=== PATIENT | male | born 1970 | race Caucasian/White ===

== ENCOUNTER 2018-12-04 06:45 | Day surgery (SDC) | payer BC ==
[~2018-12-04 06:45] MED LIST: Lactated Ringers 1,000 ML IV SCH; Sodium Chloride 0.9% 10 ML Syringe FLUSH PRN
[2018-12-04] MEDS ORDERED: Propofol 200 MG/20 ML SDV IV ONE (06:46)
[2018-12-04] MEDS ORDERED: Lidocaine 1% 30 ML SDV INJECT ONE (06:46)
--- NOTE | 2018-12-04 07:52 | PREOP ---
ADMISSION DATE: 12/04/2018 CHIEF COMPLAINT: Need for colon cancer screening. HISTORY OF PRESENT ILLNESS: A 48-year-old white male presents for his 1st colonoscopy. No complaints. Has a negative family history. SOCIAL HISTORY: The patient is , with two children. ALLERGIES: He has no known drug allergies. PAST MEDICAL HISTORY: Negative. PAST SURGICAL HISTORY: Negative. FAMILY HISTORY: Significant for hepatic cancer, hypertension, and hypercholesterolemia. REVIEW OF SYSTEMS: Constitutional, HEENT, eyes, ears, nose, throat, respiratory, cardiovascular, general, urinary, and gastrointestinal are all negative. PHYSICAL EXAMINATION: GENERAL: This is a well-developed and well-nourished white male, appearing in no acute distress. VITAL SIGNS: Reviewed. He is stable, afebrile. HEENT: Grossly within normal limits. LUNGS: Clear to auscultation. HEART: Regular rate and rhythm. ABDOMEN: Soft and nontender. ASSESSMENT: Colon cancer screening. PLAN: Colonoscopy. Procedure and risks explained to the patient to include bleeding, perforation, and infection. The patient expresses understanding, and he asked us to proceed. /[id number] /MODL
--- NOTE | 2018-12-04 08:23 | PCM.OPNOTE ---
- General Post-Op/Procedure Note Date of Surgery/Procedure: 12/04/18 Operative Procedure(s): c scope Findings: normal exam Pre Op Diagnosis: screening for colon cancer Post-Op Diagnosis: Same Anesthesia Technique: MAC Primary Surgeon: Sandor Valdez Anesthesia Provider: Chepe Barr Pathology: none Complications: None Condition: Good Free Text/Narrative:: see dictation
--- NOTE | 2018-12-04 10:48 | OR ---
DATE OF OPERATION: 12/04/2018 SURGEON: Sandor Valdez MD PROCEDURE PERFORMED: Colonoscopy. PREOPERATIVE DIAGNOSIS: Colon cancer screening. POSTOPERATIVE DIAGNOSIS: Normal exam. INDICATIONS FOR PROCEDURE: This is a 48-year-old white male who presents for his initial screening colonoscopy. DESCRIPTION OF OPERATION: After an excellent IV sedation was administered, digital rectal exam was performed. No marked abnormality was noted. Flexible colonoscope was inserted and advanced to the cecum. The prep was excellent. The following findings were noted. Ascending colon, unremarkable. Transverse colon, unremarkable. Descending colon, unremarkable. Sigmoid and rectum, unremarkable. Colon was deflated, the scope was removed. The patient tolerated the procedure well. RECOMMENDATIONS: Repeat colonoscopy in 10 years. /[id number] /CASTROL
== END 2018-12-04 09:29 | disposition home or self-care (01) ==
LOC: FB.SDS 06:45
PROVIDERS: ATTEND Surgery
DX: Z12.11 Encounter for screening for malignant neoplasm of colon (principal)
CPT/HCPCS: 45378; J2001; J2704; J7120

== ENCOUNTER 2020-10-11 20:25 | Emergency (ER) | payer BC, OTHER ==
[2020-10-11] MEDS: Diphtheria,Pertussis(Acell),Tetanus Vaccine 0.5 ML Syringe IM ONE (20:50)
--- NOTE | 2020-10-11 20:51 | EDM.PDOC ---
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 an EMS call, slipped on ice striking the back of his head on the ground, no LOC, mild KAUR and mild neck pain, has had bleeding at home lives with last Td unknown - Related Data Allergies Allergy/AdvReac Type Severity Reaction Status Date / Time No Known Allergies Allergy Verified 12/04/18 07:03 Home Meds: Home Meds PEG 3350/Na Sulf,Bicarb,Cl/KCl [Peg 3350 Electrolyte] 12/04/18 [History] Past Medical History HEENT History: Reports: None Cardiovascular History: Reports: High Cholesterol Respiratory History: Reports: None Gastrointestinal History: Reports: None Genitourinary History: Reports: None GENETIC ENGINEER History: Musculoskeletal History: Reports: None Neurological History: Reports: None Psychiatric History: Reports: None Endocrine/Metabolic History: Reports: None Hematologic History: Reports: None Immunologic History: Reports: None Oncologic (Cancer) History: Reports: None Dermatologic History: Reports: None - Past Surgical History Female Surgical History: Social & Family History - Caffeine Use Caffeine Use: Reports: Coffee ED ROS GENERAL - Review of Systems Review Of Systems: See Below Constitutional: Reports: No Symptoms HEENT: Reports: No Symptoms Respiratory: Reports: No Symptoms Cardiovascular: Reports: No Symptoms Endocrine: Reports: No Symptoms GI/Abdominal: Reports: No Symptoms : Reports: No Symptoms Musculoskeletal: Reports: Neck Pain Skin: Reports: No Symptoms Neurological: Reports: Other (pain at lac, minor neck pain) Psychiatric: Reports: No Symptoms Hematologic/Lymphatic: Reports: No Symptoms Immunologic: Reports: No Symptoms ED EXAM, HEAD INJURY - Physical Exam Exam: See Below Exam Limited By: No Limitations General Appearance: Alert, WD/WN, No Apparent Distress, Other (alert, pleasant, in uniform) Head: Other (2 cm abrasion at occiput, 2 mm gap from loss of skin, blood cleaned from scalp, no active bleeding, Dermabond applied as a dressing as pt has short hair in area that would have prevented a bandaid or drsg from adhering, no f.b.) Eyes: Bilateral Eye: EOMI, Normal Inspection, PERRL Ears: Hearing Grossly Normal Nose: Normal Inspection, Normal Mucousa, No Blood Throat/Mouth: Normal Inspection, Normal Lips, Normal Teeth, Normal Gums, Normal Oropharynx, Normal Voice, No Airway Compromise Neck: Full Range of Motion, Normal Alignment, Normal Inspection, Other (no spasm, no point tender) Respiratory: No Respiratory Distress, Lungs Clear, Normal Breath Sounds, No Accessory Muscle Use, Chest Non-Tender Cardiovascular: Regular Rate, Rhythm, No JVD, No Murmur GI/Abdominal Exam: Soft, Non-Tender, No Distention Back Exam: Full Range of Motion, Normal Inspection, NT Extremities: Normal Inspection, Normal Range of Motion, Non-Tender, No Pedal Edema Neurologic: No Motor/Sensory Deficits, Alert, Normal Mood/Affect, Oriented x 3 Skin: Normal Color, Warm/Dry Course - Re-Assessments/Exams Free Text/Narrative Re-Assessment/Exam: 10/11/20 20:56 minimal swell of scalp, no clinical evidence of intracerebral injury, does not meet clinical criteria for imaging of head or neck Departure - Departure Time of Disposition: 20:43 Disposition: Home, Self-Care 01 Condition: Good Clinical Impression: Scalp abrasion, Minor head injury, Acute cervical sprain - Discharge Information *PRESCRIPTION DRUG MONITORING PROGRAM REVIEWED*: No *COPY OF PRESCRIPTION DRUG MONITORING REPORT IN PATIENT CATY: No Instructions: Abrasion, Head Injury, Adult, [id number], Cervical Sprain, [id number] Referrals: Mireya Stein NP [Primary Care Provider] - Additional Instructions: For pain and inflammation, take ibuprofen 200 mg 4 tabs and acetaminophen 500 mg 2 tabs tonight, then 3 times a day for 3 days, longer if needed. Avoid touching or rubbing the top of your scalp for 7 days. Avoid moisture for 48 hours. Rest for the next 24 hours. See your physician in one week if you are not 100% back to normal.
== END 2020-10-11 21:05 | disposition home or self-care (01) ==
LOC: FB.ED 20:25
DX: S13.4XXA Sprain of ligaments of cervical spine, initial encounter (principal); S00.01XA Abrasion of scalp, initial encounter; Z23 Encounter for immunization; W00.0XXA Fall on same level due to ice and snow, initial encounter
CPT/HCPCS: 12001; 90471; 90715; 99282; 99283-25

== ENCOUNTER 2022-07-13 12:09 | Emergency (ER) | payer BC ==
[2022-07-13 13:11] LABS: ESTIMATED GFR 89 mL/min (>60)
== END 2022-07-13 14:57 | disposition home or self-care (01) ==
LOC: FB.ED 12:09
DX: F43.0 Acute stress reaction (principal)
CPT/HCPCS: 36415; 80053; 80307; 81001; 84439; 84443; 85025; 99283